=== PATIENT | male | born 2000 | race Caucasian/White ===

== ENCOUNTER 2024-02-09 17:27 | Emergency (ER) | payer MEDICAID ==
[~2024-02-09] VITALS: Ht 185.4 cm; Wt 65.8 kg
[2024-02-09 18:10] VITALS: BP 135/66; TEMP 98
[2024-02-09] MEDS: IBUPROFEN 600 MG TABLET PO ONE (19:30)
[2024-02-09] MEDS ORDERED: IBUPROFEN 600 MG TABLET ONE (20:28)
[2024-02-09] MEDS ORDERED: ACET325C7 PO (20:46)
[2024-02-09] MEDS ORDERED: IBUP-1955 PO (20:46)
[2024-02-09 21:20] VITALS: O2SAT 97
== END 2024-02-09 21:20 | disposition home or self-care (01) ==
LOC: ER 17:32
DX: M79.661 Pain in right lower leg (principal)
CPT/HCPCS: 93971-TC